=== PATIENT | male | born 1980 ===

== ENCOUNTER 2016-05-09 14:00 | Emergency (ER) | payer OTHER ==
[2016-05-09 14:05] VITALS: BMI 40.2
[2016-05-09] MEDS ORDERED: Sodium Chloride 0.9% 1,000 ML IV ONE (14:12)
[2016-05-09 14:16] VITALS: TEMP 97.9
[2016-05-09] MEDS ORDERED: Sodium Chloride 0.9% 1,000 ML ONE (14:27)
[2016-05-09 14:36] LABS: BASO % 0.4 % (0.0-2.0); EOS # 0.6 K/uL (0.0-0.7); EOS % 7.9 % (0.0-4.0); HEMATOCRIT 42.5 % (35.0-51.0); LYMPH % 27.3 % (20.0-40.0); MEAN CELL VOLUME 79.1 fL (80.0-94.0); MEAN CORPUSCULAR HEMOGLOBIN 25.9 pg (27.0-31.0); MEAN CORPUSCULAR HGB CONC 32.7 g/dL (33.0-37.0); MEAN PLATELET VOLUME 8.8 fL (7.2-11.7); MONO # 0.6 K/uL (0.0-0.8); NRBC % 0.1 % (0.0-2.0); RED CELL DISTRIBUTION WIDTH 13.2 % (11.5-14.5); WHITE BLOOD COUNT 7.4 K/uL (4.8-10.8)
[2016-05-09 14:40] LABS: CHLORIDE 97 mmol/L (98-107)
[2016-05-09 14:41] LABS: POTASSIUM 3.7 mmol/L (3.6-5.2); SODIUM 138 mmol/L (132-148)
[2016-05-09 14:43] LABS: GFR AFRICAN-AMERICAN > 60
[2016-05-09 14:44] LABS: ALB/GLOB RATIO 1.4 (1.0-2.1); ALKALINE PHOSPHATASE 70 U/L (38-126); ALT/SGPT 48 U/L (21-72); AST/SGOT 36 U/L (17-59); BILIRUBIN,TOTAL 0.3 mg/dL (0.2-1.3); BLOOD UREA NITROGEN 14 mg/dL (9-20); CALCIUM 9.4 mg/dl (8.6-10.4); CARBON DIOXIDE 24 mmol/L (22-30); GLUCOSE,RANDOM 137 mg/dL (75-110); TOTAL PROTEIN 7.3 g/dL (6.3-8.3)
--- NOTE | 2016-05-09 15:20 | C.PDOC ---
History Of Present Illness 35 year old male with a history of seizure disorder (since 2013 s/p head trauma) , brought to the ED by EMS s/p two witnessed seizures by his today at home. Patient states all he remembers is taking a shower. He is compliant with Keppra 1000mg BID, however he did not take it this morning. He has no physical complaints at this time. Neurologist: Dr. Caballero Time Seen by Provider: 05/09/16 14:04 Chief Complaint (Nursing): Seizure History Per: Patient History/Exam Limitations: no limitations Recent Seizure Activity Began: Just Before Arrival Number Of Seizures: Multiple Past Medical History Reviewed: Historical Data, Nursing Documentation, Vital Signs Vital Signs: Last Vital Signs Temp 97.9 F 05/09/16 14:05 Pulse 70 05/09/16 16:35 Resp 18 05/09/16 16:35 BP 115/54 L 05/09/16 16:35 Pulse Ox 98 05/09/16 16:40 - Medical History PMH: Back Problems, CVA, Diabetes, HTN, Hypercholesterolemia, Seizures (takes keppra) Surgical History: Appendectomy, Cholecystectomy - [facility] Procedures OTH NONOPER CARD AND VASC MEASURE (06/23/14) Family History: States: No Known Family Hx - Social History Hx Tobacco Use: Yes Hx Alcohol Use: No Hx Substance Use: No - Immunization History Hx Tetanus Toxoid Vaccination: No Hx Influenza Vaccination: No Hx Pneumococcal Vaccination: No Review Of Systems Except As Marked, All Systems Reviewed And Found Negative. Cardiovascular: Negative for: Chest Pain Respiratory: Negative for: Cough, Shortness of Breath Gastrointestinal: Negative for: Nausea, Vomiting, Abdominal Pain, Diarrhea Neurological: Positive for: Seizures Physical Exam - Physical Exam Appears: Well, Non-toxic, No Acute Distress Skin: Normal Color, Warm, Dry Head: Atraumatic, Normacephalic Eye(s): bilateral: Normal Inspection, PERRL, EOMI Oral Mucosa: Moist Tongue: Normal Appearing, No Bite, No Laceration Neck: Supple Cardiovascular: Rhythm Regular Respiratory: Normal Breath Sounds, No Accessory Muscle Use, No Rales, No Rhonchi , No Wheezing Extremity: Normal ROM Neurological/Psych: Oriented x3, Normal Speech, Normal Cognition, Normal Cranial Nerves, No Cerebellar Signs, Normal Motor, Normal Sensation ED Course And Treatment - Laboratory Results Result Diagrams: 05/09/16 14:24 05/09/16 14:24 ECG: Interpreted By Me, Viewed By Me (NSR 66bpm, normal axis, no acute ST/T wave changes) ECG Rhythm: Sinus Rhythm ECG Interpretation: Normal Rate From EC O2 Sat by Pulse Oximetry: 98 (Room air) Pulse Ox Interpretation: Normal Progress Note: Blood work, EKG ordered and reviewed. Patient given PO Keprra and IV NS bolus. Reevaluation Time: 16:40 Reassessment Condition: Improved (Patient reassessed, is resting comfortably, no repeat seizures in ED. Patient instructed to take his medications daily, and to follow up with neurologist Dr. Caballero within 1 week. He underdstands he should return to ED if symptoms worsen.) Disposition Counseled Patient/Family Regarding: Studies Performed, Diagnosis, Need For Followup - Disposition Referrals: Sav Caballero MD [Staff Provider] - Jerome Persaud MD, PhD [Staff Provider] - Disposition: HOME/ ROUTINE Disposition Time: 16:40 Condition: STABLE Additional Instructions: FOLLOW UP WITH YOUR DOCTOR IN TOMORROW, AND WITH NEUROLOGY WITHIN 1 WEEK TAKE YOUR KEPPRA TWICE DAILY RETURN TO ER IF SYMPTOMS WORSEN/RETURN Instructions: Recurrent Seizures in Adults (ED) Print Language: MONTENEGRIN - Clinical Impression Clinical Impression: Seizure, Seizure disorder - Scribe Statement The provider has reviewed the documentation as recorded by the Scribe Monica Guerrero. Provider Attestation: All medical record entries made by the Scribe were at my direction and personally dictated by me. I have reviewed the chart and agree that the record accurately reflects my personal performance of the history, physical exam, medical decision making, and the department course for this patient. I have also personally directed, reviewed, and agree with the discharge instructions and disposition.
[2016-05-09 16:40] VITALS: O2SAT 98
[2016-05-09 16:48] VITALS: BP 115/54; PULSE 70; RESP 18
--- NOTE | 2016-05-10 21:30 | CARD ---
APPROVED REPORT EKG Measurement Heart [id number] <Conclusion> Normal sinus rhythm Normal ECG
== END 2016-05-09 16:51 | disposition home or self-care (01) ==
LOC: C.ER 14:00
DX: G40.909 Epilepsy, unspecified, not intractable, without status epilepticus (principal)
CPT/HCPCS: 80053; 80299; 82550; 82948; 85025; 93005; 96360; 99285; J7040

== ENCOUNTER 2016-05-20 06:24 | Emergency (ER) | payer OTHER ==
[2016-05-20 06:24] VITALS: BMI 40.2
[2016-05-20 06:41] VITALS: BP 140/77; PULSE 97; RESP 16; TEMP 98.2; O2SAT 99
--- NOTE | 2016-05-20 07:32 | C.PDOC ---
History Of Present Illness Patient is a 35 y/o male that presents to the ED for evaluation of dizziness described as head spinning for the last 2 days. Pt states his symptoms are associated with intermittent nausea, and worse with head movement. Pt notes having similar symptoms in the past, but states his symptoms are worse this time. Pt also notes mild back pain s/p fall injury, and reports taking Vicodin. Otherwise, denies any recent head injury, vomiting, vision change, extremity weakness/numbness or any other associated symptoms at this time. Time Seen by Provider: 05/20/16 07:07 Chief Complaint (Nursing): Dizziness/Lightheaded History Per: Patient History/Exam Limitations: no limitations Onset/Duration Of Symptoms: Days (2) Current Symptoms Are (Timing): Still Present Activity At Onset Of Symptoms: Change In Head Position Possible Causative Factor(s): Vertigo Fall Associated With With Symptoms: No Recent travel outside of the [place]: No Additional History Per: Patient - Symptoms Of CVA Recent Head Trauma: No Past Medical History Reviewed: Historical Data, Nursing Documentation, Vital Signs Vital Signs: Last Vital Signs Temp 98.2 F 05/20/16 06:35 Pulse 97 H 05/20/16 06:35 Resp 16 05/20/16 06:35 BP 140/77 05/20/16 06:35 Pulse Ox 99 05/20/16 07:44 - Medical History PMH: Back Problems, CVA, Diabetes, HTN, Hypercholesterolemia, Seizures (takes keppra) Denies: Chronic Kidney Disease Surgical History: Appendectomy, Cholecystectomy - [facility] Procedures OTH NONOPER CARD AND VASC MEASURE (06/23/14) Family History: States: Unknown Family Hx - Social History Hx Tobacco Use: Yes Hx Alcohol Use: No Hx Substance Use: No - Immunization History Hx Tetanus Toxoid Vaccination: No Hx Influenza Vaccination: No Hx Pneumococcal Vaccination: No Review Of Systems Except As Marked, All Systems Reviewed And Found Negative. Constitutional: Negative for: Fever, Chills Gastrointestinal: Positive for: Nausea. Negative for: Vomiting, Abdominal Pain Musculoskeletal: Positive for: Back Pain. Negative for: Neck Pain Neurological: Positive for: Dizziness. Negative for: Weakness, Numbness Physical Exam - Physical Exam Additional Physical Exam Comments: Constitutional: No acute distress. Head: Normocephalic. Atraumatic. Eyes: PERRL. No nystagmus. ENT: Moist mucous membranes. Neck: Supple. Cardiovascular: Regular rate. Radial pulse 2+ bilaterally. Chest: No tenderness. Respiratory: Clear to auscultation bilaterally. GI: Soft. Nontender. Nondistended. Back: No CVA tenderness. No midline tenderness. Musculoskeletal: No tenderness or swelling of extremities. Skin: No rash. Neurologic: Alert, no focal deficit. Oriented x 3. Cranial nerves II-XII intact. Normal finger to nose. Normal sensation. Motor 5/5 x 4. Steady gait. ED Course And Treatment O2 Sat by Pulse Oximetry: 99 Medical Decision Making Medical Decision Making: Progress note: Patient was treated with Meclizine in the ED. On reassessment, patient is resting comfortably and states the vertigo is much better, with no acute distress. Pt denies any neurologic complaints at this time. Pt is ambulating well, and states he will follow up with his doctor. Disposition - Disposition Referrals: Jerome Persaud MD, PhD [Staff Provider] - Disposition: HOME/ ROUTINE Disposition Time: 08:44 Condition: STABLE Prescriptions: Meclizine [Antivert] 25 mg PO TID PRN #20 tab PRN Reason: Dizziness Instructions: Benign Paroxysmal Positional Vertigo (ED) Forms: Work Excuse - Clinical Impression Clinical Impression: Vertigo - Scribe Statement The provider has reviewed the documentation as recorded by the Christy Reinoso Provider Attestation: All medical record entries made by the Deonibdaysi were at my direction and personally dictated by me. I have reviewed the chart and agree that the record accurately reflects my personal performance of the history, physical exam, medical decision making, and the department course for this patient. I have also personally directed, reviewed, and agree with the discharge instructions and disposition.
== END 2016-05-20 08:51 | disposition home or self-care (01) ==
LOC: C.ER 06:24
DX: R42 Dizziness and giddiness (principal)

== ENCOUNTER 2016-06-27 23:53 | Emergency (ER) | payer OTHER ==
[2016-06-27 23:53] VITALS: BMI 40.2
[2016-06-28 00:42] VITALS: BP 131/67; PULSE 80; RESP 20; TEMP 98; O2SAT 98
[2016-06-28] MEDS ORDERED: Naproxen 550 mg Tab PO ONE (01:01)
--- NOTE | 2016-06-29 02:42 | C.PDOC ---
History Of Present Illness Patient is a 36 y/o male that presents to the ER for evaluation of back pain that developed yesterday. Pt describes the pain as stiffness. Pt notes having similar symptoms in the past s/p injury at work few months ago. Pt had MRI done at that time, and states was diagnosed with thoracic and lumbar "bruising". Pt notes starting physical therapy 3 days ago, and went back to work yesterday for light duty work. Pt states he was at work for 4 hours yesterday, when the pain started. Denies taking any pain medications at home. Otherwise, denies any trauma, injury, change in sensation, extremity weakness/numbness, incontinence, or any other associated symptoms at this time. Time Seen by Provider: 06/28/16 00:27 Chief Complaint (Nursing): Back Pain History Per: Patient History/Exam Limitations: no limitations Onset/Duration Of Symptoms: Days (yesterday) Associated Symptoms: denies: Incontinence, New Weakness, New Numbness Past Medical History Vital Signs: Last Vital Signs Temp 98 F 06/28/16 00:41 Pulse 80 06/28/16 00:41 Resp 20 06/28/16 00:41 BP 131/67 06/28/16 00:41 Pulse Ox 98 06/28/16 00:41 - Medical History PMH: Back Problems, CVA, Diabetes, HTN, Hypercholesterolemia, Seizures (takes keppra) Denies: Chronic Kidney Disease Surgical History: Appendectomy, Cholecystectomy - [facility] Procedures OTH NONOPER CARD AND VASC MEASURE (06/23/14) Family History: States: Unknown Family Hx - Social History Hx Tobacco Use: Yes Hx Alcohol Use: No Hx Substance Use: No - Immunization History Hx Tetanus Toxoid Vaccination: No Hx Influenza Vaccination: No Hx Pneumococcal Vaccination: No Review Of Systems Except As Marked, All Systems Reviewed And Found Negative. Musculoskeletal: Positive for: Back Pain Physical Exam - Physical Exam Appears: Well, Non-toxic, No Acute Distress Skin: Normal Color, Warm, Dry Head: Atraumatic, Normacephalic Eye(s): bilateral: Normal Inspection, EOMI Nose: Normal Neck: Normal, Normal ROM, No Step Off Deformity, Supple Chest: Symmetrical Cardiovascular: Rhythm Regular Respiratory: Normal Breath Sounds Gastrointestinal/Abdominal: Normal Exam, Soft, No Tenderness, Other (obese) Back: No CVA Tenderness, No Vertebral Tenderness, Paraspinal Tenderness ((+) Left sided lower paralumbar tenderness) Extremity: Normal ROM Neurological/Psych: Oriented x3, Normal Speech, Normal Motor (5/5 strength), Normal Sensation ((-) saddle anesthsia) Gait: Steady ED Course And Treatment O2 Sat by Pulse Oximetry: 98 Progress Note: Pt offered XR, refused. Flexeril and naproxen ordered. On reassessment, patient resting comfortably, no longer having back pain, no fever , no bony tenderness, no numbness, no weakness, no abdominal pain. Patient is ambulatory in the emergency department with no discomfort. Patient was instructed to follow up with physician/clinic in 1-2 days for further evaluation or return to ED if symptoms persist or worsen. pot notes he will f/u with his doctor tomorrow. Disposition - Disposition Disposition: HOME/ ROUTINE Disposition Time: 02:47 Condition: STABLE - Clinical Impression Clinical Impression: Low back pain
== END 2016-06-28 00:41 | disposition home or self-care (01) ==
LOC: C.ER 23:53
DX: M54.5 Low back pain (principal)

== ENCOUNTER 2016-07-05 18:05 | Emergency (ER) | payer OTHER ==
[2016-07-05 18:06] VITALS: BMI 40.2
[2016-07-05 18:20] VITALS: TEMP 97.9; O2SAT 97
--- NOTE | 2016-07-05 19:08 | C.PDOC ---
History Of Present Illness 36 y/o male with hx of a slip and fall at work in March, had mri done at end of May showing "lumbar and thoracic bruising'. Pt started physicial therapy last week. pt returned to work after injury on June 26, seen in [facility] on June 27 for back pain and was prescribed flexeril and naproxen, however pt has not yet filled either prescription. addendum- unclear if pat was given rx last visit, will give today. pt sts he returned to work on 07/02 and has not been able to do his job properly (is on light duty) over the last few days because of pain. today. 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 pt is not taking anything at all for pain. pt also c/o dizziness and nausea when pain is bad, c/o occasional tingling in left leg. pt denies any saddle anesthesia, bladder or bowel dysfunction or lower ext weakness. no fever or chills. Time Seen by Provider: 07/05/16 18:31 Chief Complaint (Nursing): Back Pain History Per: Patient History/Exam Limitations: no limitations Onset/Duration Of Symptoms: Days Quality Of Discomfort: Unable To Describe Associated Symptoms: denies: Incontinence, New Weakness, New Numbness Exacerbating Factor(s): Movement Recent travel outside of the [place]: No Past Medical History Reviewed: Historical Data, Nursing Documentation, Vital Signs Vital Signs: Last Vital Signs Temp 97.9 F 07/05/16 18:17 Pulse 78 07/05/16 20:25 Resp 17 07/05/16 20:25 BP 129/79 07/05/16 20:25 Pulse Ox 97 07/06/16 19:53 - Medical History PMH: Back Problems, CVA, Diabetes, HTN, Hypercholesterolemia, Seizures (takes keppra) Denies: Chronic Kidney Disease Surgical History: Appendectomy, Cholecystectomy - [facility] Procedures OTH NONOPER CARD AND VASC MEASURE (06/23/14) Family History: States: Unknown Family Hx - Social History Hx Tobacco Use: Yes Hx Alcohol Use: No Hx Substance Use: No - Immunization History Hx Tetanus Toxoid Vaccination: No Hx Influenza Vaccination: No Hx Pneumococcal Vaccination: No Review Of Systems Constitutional: Negative for: Fever, Chills Cardiovascular: Negative for: Chest Pain, Palpitations Respiratory: Negative for: Cough, Shortness of Breath Gastrointestinal: Negative for: Vomiting, Abdominal Pain Skin: Negative for: Rash Neurological: Positive for: Dizziness (unable to describe exactly what this means. ). Negative for: Weakness, Numbness Physical Exam - Physical Exam Appears: Non-toxic, No Acute Distress Skin: Normal Color, Warm, Dry Head: Atraumatic, Normacephalic Neck: Normal ROM, No Midline Cervical Tenderness Chest: Symmetrical, No Tenderness Cardiovascular: Rhythm Regular, No Murmur Respiratory: Normal Breath Sounds, No Accessory Muscle Use, No Rales, No Rhonchi , No Stridor, No Wheezing Gastrointestinal/Abdominal: Soft, No Tenderness Back: Normal Inspection, No CVA Tenderness, No Vertebral Tenderness, Paraspinal Tenderness (bilateral lumbar area) Extremity: Normal ROM, No Pedal Edema, No Calf Tenderness Neurological/Psych: Oriented x3, Normal Speech, Normal Cognition, Normal Motor, Normal Sensation Gait: Steady ED Course And Treatment O2 Sat by Pulse Oximetry: 97 Medical Decision Making Medical Decision Making: pt ambulates with no difficulty, will d/c home with flexeril and naproxen, and recommend that pt f/u with physician and continues physical therapy. . Disposition Counseled Patient/Family Regarding: Diagnosis, Need For Followup, Rx Given - Disposition Referrals: [facility] [Outside] [facility] [Outside] Disposition: HOME/ ROUTINE Disposition Time: 20:18 Condition: GOOD Additional Instructions: AvoiD heavy lifting. No operating machinery or driving when taking muscle relaxant. FOllow up in Medical clinic or with your workers compensation doctor as soon as possible. Prescriptions: Cyclobenzaprine [Cyclobenzaprine HCl] 10 mg PO Q8 #9 tab Ibuprofen [Motrin] 600 mg PO TID #30 tab Instructions: Chronic Back Pain (ED) Forms: Work Excuse, General Discharge Instructions - Clinical Impression Clinical Impression: Chronic back pain
[2016-07-05 20:26] VITALS: BP 129/79; PULSE 78; RESP 17
== END 2016-07-05 20:26 | disposition home or self-care (01) ==
LOC: C.ER 18:05
DX: G89.29 Other chronic pain (principal); M54.9 Dorsalgia, unspecified
CPT/HCPCS: 82948; 96372; 99284; J1885

== ENCOUNTER 2016-07-19 19:36 | Emergency (ER) | payer OTHER ==
[2016-07-19 19:36] VITALS: BMI 40.2
--- NOTE | 2016-07-19 21:14 | C.PDOC ---
History Of Present Illness 36 yo male w/PMHx of chronic lower back pain, NIDDM, sz ds, come in for evaluation of Right sided lower back pain exacerbation developed few hours [employer] ' after was trying to tight my shoes as was recommend by physical therapy". Pt sts, "have heard some crack sound in my back". Pt admits, under PT now for chronic lower back pain. Pt sts, had similar sx in past. Pt sts, "has multiple pain medication at home, not taking it". Pt sts, had mutiple imaging of his L- spine with MRI that confirmed L-spine hernitaed disc. Otherwise, pt denies fever , chills, headache, dizziness, abd. pain, N/V, UTI sx, saddle anesthesia, incontinence, denies new weakness, sensory or vascular deficits to B/L LEs. Ambulate to Ed for evaluation, not in any apparent distress. Time Seen by Provider: 07/19/16 20:29 Chief Complaint (Nursing): Back Pain History Per: Patient Onset/Duration Of Symptoms: Gradual Past Medical History Reviewed: Historical Data, Nursing Documentation, Vital Signs - Medical History PMH: Back Problems, CVA, Diabetes, HTN, Hypercholesterolemia, Seizures (takes keppra) Denies: Chronic Kidney Disease Other PMH: Obesity Surgical History: Appendectomy, Cholecystectomy - [facility] Procedures OTH NONOPER CARD AND VASC MEASURE (06/23/14) Family History: States: No Known Family Hx - Social History Hx Tobacco Use: Yes Hx Alcohol Use: No Hx Substance Use: No - Immunization History Hx Tetanus Toxoid Vaccination: No Hx Influenza Vaccination: No Hx Pneumococcal Vaccination: No Review Of Systems Except As Marked, All Systems Reviewed And Found Negative. Constitutional: Negative for: Fever, Chills ENT: Negative for: Throat Pain Gastrointestinal: Negative for: Nausea, Vomiting, Abdominal Pain, Diarrhea Genitourinary: Negative for: Dysuria, Frequency, Incontinence Musculoskeletal: Positive for: Back Pain. Negative for: Neck Pain Skin: Negative for: Rash, Bruising Neurological: Negative for: Weakness, Numbness, Altered Mental Status, Headache , Dizziness Physical Exam - Physical Exam Appears: Well, Non-toxic, No Acute Distress Skin: Normal Color, Warm, Dry Eye(s): bilateral: PERRL Throat: Normal, No Erythema, No Exudate, No Drooling Neck: Supple Gastrointestinal/Abdominal: Soft, No Distention, No Guarding Back: No CVA Tenderness, Paraspinal Tenderness (diffuse lumbar paraspinal tenderness, no midline tenderness.) Extremity: No Pedal Edema, No Calf Tenderness, No Deformity Neurological/Psych: Oriented x3, Normal Speech, Normal Motor, Normal Sensation, Normal Reflexes ED Course And Treatment Progress Note: On re-eavluation, pt is afebrile, hemodynamicaly stable. Non- toxic. Ambulatory in Ed with stable gait. Abd: benign. Back: (-) CVA tenderness. Neurologicaly intact. Pt has clinical findings c/w lower back pain with acute exacerbation. Pt advised and ref. to F/u with PMD and PM in 2- 3 days for re-eavl. reurn to ED if any worsening or new changes. Disposition Counseled Patient/Family Regarding: Diagnosis, Need For Followup, Rx Given - Disposition Referrals: [facility] at [facility] [Outside] Disposition: HOME/ ROUTINE Disposition Time: 21:11 Condition: STABLE Additional Instructions: Light duty to lower back, avoid bending forward, lifting heavy, etc Take medication as prescribed Follow up with PMD and Pain Management in 2-3 days for re-evaluation. Return to Ed if any worsening or new changes. Prescriptions: Ibuprofen [Motrin Tab] 600 mg PO Q6 #30 tab Methocarbamol [Robaxin] 500 mg PO TID #20 tab Instructions: Back Pain (ED) - Clinical Impression Clinical Impression: Back pain
[2016-07-19 21:34] VITALS: BP 132/70; PULSE 72; RESP 20; TEMP 97.4; O2SAT 98
== END 2016-07-19 21:50 | disposition home or self-care (01) ==
LOC: C.ER 19:36
DX: M54.5 Low back pain (principal)

== ENCOUNTER 2016-09-03 22:52 | Emergency (ER) | payer OTHER ==
[2016-09-03 22:52] VITALS: BMI 40.2
--- NOTE | 2016-09-04 01:07 | C.PDOC ---
History Of Present Illness Patient presents to the ER with a complaint of feeling slightly dizzy; he states he has a Hx of similar episodes and vertigo. Patient feels better now than at work; however, does not know what his currently sugar level is. Denies fever, chills, nausea, vomiting, weakness, or vision changes. Time Seen by Provider: 09/04/16 01:07 Chief Complaint (Nursing): Dizziness/Lightheaded History Per: Patient History/Exam Limitations: no limitations Onset/Duration Of Symptoms: Hrs Current Symptoms Are (Timing): Still Present Seizure Or Post-ictal Symptoms: None Possible Causative Factor(s): Other (Not known) Fall Associated With With Symptoms: No Severity: None Pain Scale Rating Of: 0 Recent travel outside of the [place]: No - Symptoms Of CVA Associated Symptoms: denies: Impaired Speech, Seizure Activity, New Vision Deficit(Left), New Vision Deficit(Right), Decreased Ability To Walk, New Confusion Past Medical History Reviewed: Historical Data, Nursing Documentation, Vital Signs Vital Signs: Last Vital Signs Temp 98.5 F 09/03/16 23:09 Pulse 87 09/03/16 23:09 Resp 17 09/03/16 23:09 BP 130/80 09/03/16 23:09 Pulse Ox 95 09/04/16 01:27 - Medical History PMH: Back Problems, CVA, Diabetes, HTN, Hypercholesterolemia, Seizures (takes keppra) Surgical History: Appendectomy, Cholecystectomy - [facility] Procedures OTH NONOPER CARD AND VASC MEASURE (06/23/14) Family History: States: No Known Family Hx - Social History Hx Tobacco Use: Yes Hx Alcohol Use: Yes Hx Substance Use: No - Immunization History Hx Tetanus Toxoid Vaccination: No Hx Influenza Vaccination: No Hx Pneumococcal Vaccination: No Review Of Systems Constitutional: Negative for: Fever, Chills Eyes: Negative for: Vision Change Gastrointestinal: Negative for: Nausea, Vomiting Neurological: Positive for: Dizziness. Negative for: Weakness Physical Exam - Physical Exam Appears: Non-toxic, No Acute Distress Skin: Warm, Dry Eye(s): bilateral: Normal Inspection, PERRL, EOMI, Other (No Nystagmus) Oral Mucosa: Moist Neck: Trachea Midline, Supple Chest: Symmetrical, No Tenderness Cardiovascular: Rhythm Regular, No Murmur Respiratory: No Rales, No Rhonchi, No Wheezing Gastrointestinal/Abdominal: Soft, No Tenderness Back: No CVA Tenderness Extremity: Normal ROM Extremity: Bilateral: Atraumatic Neurological/Psych: Oriented x3, Normal Speech, Normal Cognition, No Romberg Gait: Steady ED Course And Treatment O2 Sat by Pulse Oximetry: 95 Pulse Ox Interpretation: Normal Progress Note: Blood work and urinalysis ordered. Antivert and IV fluids ordered. pt refuses blood work. states he feels fine and wants to go home. is aware of all th erisks I have explained at length, including permanent disability and , but pt still wants to go. Will return if symptoms recur Disposition Counseled Patient/Family Regarding: Studies Performed, Diagnosis, Need For Followup, Rx Given - Disposition Disposition: HOME/ ROUTINE Disposition Time: 01:07 Condition: FAIR Instructions: Vertigo (ED), Diabetic Hyperglycemia (ED) Forms: Work Excuse - Clinical Impression Clinical Impression: Dizziness, Hyperglycemia - Scribe Statement The provider has reviewed the documentation as recorded by the Scribe Phillip Moy All medical record entries made by the Scribe were at my direction and personally dictated by me. I have reviewed the chart and agree that the record accurately reflects my personal performance of the history, physical exam, medical decision making, and the department course for this patient. I have also personally directed, reviewed, and agree with the discharge instructions and disposition.
[2016-09-04] MEDS ORDERED: Sodium Chloride 0.9% 1,000 ML IV ONE (01:11)
[2016-09-04] MEDS ORDERED: Sodium Chloride 0.9% 1,000 ML ONE (01:23)
[2016-09-04 01:47] VITALS: BP 121/79; PULSE 74; RESP 20; TEMP 98.1; O2SAT 97
== END 2016-09-04 01:47 | disposition home or self-care (01) ==
LOC: SUPCPDRO 22:52 → C.ER 22:52
DX: E11.65 Type 2 diabetes mellitus with hyperglycemia (principal); R42 Dizziness and giddiness; I10 Essential (primary) hypertension; F17.210 Nicotine dependence, cigarettes, uncomplicated

== ENCOUNTER 2016-09-09 22:21 | Emergency (ER) | payer OTHER ==
[2016-09-09 22:21] VITALS: BMI 40.2
[2016-09-09] MEDS ORDERED: Naproxen 550 mg Tab PO STA (22:53)
[2016-09-09] MEDS ORDERED: Naproxen 550 mg Tab PO ONE (22:58)
--- NOTE | 2016-09-09 23:17 | C.PDOC ---
History Of Present Illness 36 year old male who presents to the ER with a complaint of right lower back pain after moving heavy furniture earlier today. Patient states the pain worsens with movement or bending; denies recent trauma, weakness, numbness, dysuria, hematuria, or incontinence. Time Seen by Provider: 09/09/16 22:35 Chief Complaint (Nursing): Back Pain History Per: Patient History/Exam Limitations: no limitations Onset/Duration Of Symptoms: Hrs Current Symptoms Are (Timing): Still Present Quality Of Discomfort: Unable To Describe Previous Symptoms: None Associated Symptoms: None Exacerbating Factor(s): Movement, Other (Bending) Recent travel outside of the [place]: No Past Medical History Reviewed: Historical Data, Nursing Documentation, Vital Signs Vital Signs: Last Vital Signs Temp 98 F 09/09/16 23:20 Pulse 90 09/09/16 23:20 Resp 20 09/09/16 23:20 BP 118/70 09/09/16 23:20 Pulse Ox 97 09/09/16 23:39 - Medical History PMH: Back Problems, CVA, Diabetes, HTN, Hypercholesterolemia, Seizures (takes keppra) Surgical History: Appendectomy, Cholecystectomy - [facility] Procedures OTH NONOPER CARD AND VASC MEASURE (06/23/14) Family History: States: Unknown Family Hx - Social History Hx Tobacco Use: Yes Hx Alcohol Use: Yes Hx Substance Use: No - Immunization History Hx Tetanus Toxoid Vaccination: No Hx Influenza Vaccination: No Hx Pneumococcal Vaccination: No Review Of Systems Genitourinary: Negative for: Dysuria, Incontinence, Hematuria Musculoskeletal: Positive for: Back Pain Neurological: Negative for: Weakness, Numbness Physical Exam - Physical Exam Appears: Non-toxic Skin: Normal Color, Warm, Dry Head: Atraumatic, Normacephalic Oral Mucosa: Moist Chest: Symmetrical, No Tenderness Cardiovascular: Rhythm Regular, No Murmur Respiratory: Normal Breath Sounds, No Rales, No Rhonchi, No Wheezing Gastrointestinal/Abdominal: Soft, No Tenderness Back: No Vertebral Tenderness, Paraspinal Tenderness (Right lumbar) Neurological/Psych: Oriented x3, Normal Speech, Normal Cognition ED Course And Treatment O2 Sat by Pulse Oximetry: 97 (Room air) Pulse Ox Interpretation: Normal Medical Decision Making Medical Decision Making: Plan: * Flexeril * Anaprox On reevaluation, patient's pain has improved, he is able to ambulate in the ER with no difficulty. Will discharge home with instructions to follow up with PMD. Disposition - Disposition Referrals: [facility] at [facility] [Outside] Disposition: HOME/ ROUTINE Disposition Time: 23:14 Condition: GOOD Additional Instructions: Follow up with your medical doctor within 1-2 days . Return if worsened. Prescriptions: Acetaminophen [Tylenol] 325 mg PO Q6 PRN #30 tab PRN Reason: Pain, Mild (1-3) Cyclobenzaprine [Flexeril] 5 mg PO TID #21 tab Naproxen [Naprosyn] 500 mg PO BID #20 tab Instructions: Acute Low Back Pain (ED) Forms: [facility] (Armenian), Work Excuse - Clinical Impression Clinical Impression: Lumbar sprain - Scribe Statement The provider has reviewed the documentation as recorded by the Scribdaysi Moy All medical record entries made by the Deonibdaysi were at my direction and personally dictated by me. I have reviewed the chart and agree that the record accurately reflects my personal performance of the history, physical exam, medical decision making, and the department course for this patient. I have also personally directed, reviewed, and agree with the discharge instructions and disposition.
[2016-09-09 23:21] VITALS: BP 118/70; PULSE 90; RESP 20; TEMP 98
[2016-09-09 23:36] VITALS: O2SAT 97
== END 2016-09-09 23:21 | disposition home or self-care (01) ==
LOC: C.ER 22:21
DX: S33.5XXA Sprain of ligaments of lumbar spine, initial encounter (principal); X50.0XXA Overexertion from strenuous movement or load, initial encounter

== ENCOUNTER 2017-04-27 19:25 | Emergency (ER) | payer SELFPAY ==
[2017-04-27 19:26] VITALS: BMI 40.2
[2017-04-27 19:40] VITALS: BP 118/77; PULSE 79; RESP 18; TEMP 98; O2SAT 97
--- NOTE | 2017-04-27 19:52 | C.PDOC ---
History Of Present Illness 36 y/o male, whose PMH includes CVA and HTN, who presents to the ED complaining of dizziness and lightheadedness since one day ago. Patient reports he was unloading a truck when his symptoms began and thought his blood pressure was high today. Patient denies any other complaints and does not want any other work -up done. Time Seen by Provider: 04/27/17 19:44 Chief Complaint (Nursing): Headache History Per: Patient History/Exam Limitations: no limitations Onset/Duration Of Symptoms: Days Current Symptoms Are (Timing): Better Severity: None Recent travel outside of the [place]: No Past Medical History Reviewed: Historical Data, Nursing Documentation, Vital Signs Vital Signs: Last Vital Signs Temp 98.0 F 04/27/17 19:33 Pulse 79 04/27/17 19:33 Resp 18 04/27/17 19:33 BP 118/77 04/27/17 19:33 Pulse Ox 97 04/27/17 19:53 - Medical History PMH: Back Problems, CVA, Diabetes, HTN, Hypercholesterolemia, Seizures (takes keppra) Denies: Chronic Kidney Disease Surgical History: Appendectomy, Cholecystectomy - [facility] Procedures OTH NONOPER CARD AND VASC MEASURE (06/23/14) Family History: States: Unknown Family Hx - Social History Hx Tobacco Use: Yes Hx Alcohol Use: No Hx Substance Use: No - Immunization History Hx Tetanus Toxoid Vaccination: No Hx Influenza Vaccination: Yes Hx Pneumococcal Vaccination: No Review Of Systems Except As Marked, All Systems Reviewed And Found Negative. Cardiovascular: Negative for: Chest Pain Respiratory: Negative for: Shortness of Breath Neurological: Positive for: Dizziness Physical Exam - Physical Exam Appears: Well, Non-toxic, No Acute Distress Skin: Normal Color, Warm, Dry Head: Atraumatic, Normacephalic Eye(s): bilateral: Normal Inspection, PERRL, EOMI Cardiovascular: Rhythm Regular Respiratory: Normal Breath Sounds, No Rales, No Rhonchi, No Wheezing Gastrointestinal/Abdominal: Normal Exam, Bowel Sounds (active), Soft, No Tenderness, No Distention, No Guarding, No Rebound Neurological/Psych: Oriented x3, Normal Speech, Normal Motor ED Course And Treatment O2 Sat by Pulse Oximetry: 97 (room air) Pulse Ox Interpretation: Normal Medical Decision Making Medical Decision Making: pt states "felt b/p was high".although on arrival it is wnl. refuses lab work. states will return w/ worsening. Plans: -- Disposition Disposition - Disposition Referrals: [facility] [Outside] [facility] at [facility] [Outside] Disposition: HOME/ ROUTINE Disposition Time: 08:45 Condition: STABLE Additional Instructions: you are declining further eval in er. return to er with worsening symptoms or concerns. Instructions: Dizziness, Nonvertigo, (DC) Forms: [employer] (Hungarian), Work Excuse - Clinical Impression Clinical Impression: Dizziness - Scribe Statement The provider has reviewed the documentation as recorded by the Scribe Scribe Attestation: Ann-Marie Enriquez MD Scribe Attestation: All medical record entries made by the Scribe were at my direction and personally dictated by me. I have reviewed the chart and agree that the record accurately reflects my personal performance of the history, physical exam, medical decision making, and the department course for this patient. I have also personally directed, reviewed, and agree with the discharge instructions and disposition.
== END 2017-04-27 20:10 | disposition home or self-care (01) ==
LOC: C.ER 19:25
DX: R42 Dizziness and giddiness (principal)

== ENCOUNTER 2017-07-17 21:54 | Emergency (ER) | payer SELFPAY ==
[2017-07-17 21:54] VITALS: BMI 40.2
[2017-07-17 22:18] VITALS: TEMP 98.2
--- NOTE | 2017-07-17 22:59 | C.PDOC ---
History Of Present Illness 37 year old male with PMHx of HTN and DM presents to the ED c/o left foot pain. Patient states he has not taking his medciations over the past 2 days because he ran out of them. Patient is also c/o pain to the sole of his left foot that hurts when ambulating. Patient denies injury,fall, trauma, weakness, numbness, CP, SOB. Chief Complaint (Nursing): Lower Extremity Problem/Injury History Per: Patient History/Exam Limitations: no limitations Onset/Duration Of Symptoms: Days (2) Current Symptoms Are (Timing): Still Present Recent travel outside of the [place]: No Additional History Per: Patient - Ankle/Foot Description Of Injury: Other Alleviating Factor(s): denies: OTC Pain Medication Past Medical History Reviewed: Historical Data, Nursing Documentation, Vital Signs Vital Signs: Last Vital Signs Temp 98.2 F 07/17/17 22:14 Pulse 79 07/17/17 22:14 Resp 20 07/17/17 22:14 BP 163/78 H 07/17/17 22:14 Pulse Ox 97 07/17/17 23:04 - Medical History PMH: Back Problems, CVA, Diabetes, HTN, Hypercholesterolemia, Seizures (takes keppra) Denies: Chronic Kidney Disease Surgical History: Appendectomy, Cholecystectomy - [facility] Procedures OTH NONOPER CARD AND VASC MEASURE (06/23/14) Family History: States: Unknown Family Hx - Social History Hx Tobacco Use: Yes Hx Alcohol Use: No Hx Substance Use: No - Immunization History Hx Tetanus Toxoid Vaccination: No Hx Influenza Vaccination: Yes Hx Pneumococcal Vaccination: No Review Of Systems Constitutional: Negative for: Fever, Chills Cardiovascular: Negative for: Chest Pain Respiratory: Negative for: Cough, Shortness of Breath Gastrointestinal: Negative for: Nausea, Vomiting Musculoskeletal: Positive for: Foot Pain Skin: Negative for: Rash Neurological: Negative for: Weakness, Numbness Physical Exam - Physical Exam Appears: Non-toxic, No Acute Distress Skin: Normal Color, Warm, Dry Head: Atraumatic, Normacephalic Eye(s): bilateral: Normal Inspection Oral Mucosa: Moist Neck: Normal ROM, Supple Chest: Symmetrical Cardiovascular: Rhythm Regular Respiratory: Normal Breath Sounds, No Rales, No Rhonchi Gastrointestinal/Abdominal: Soft, No Tenderness, No Guarding, No Rebound Back: Normal Inspection Extremity: Normal ROM, Tenderness (left foot sole), Capillary Refill (< 2 seconds), No Swelling, Other (no erythema, warmth left foot.) Extremity: Bilateral: Atraumatic, Normal Color And Temperature Pulses: Left Dorsalis Pedis: Normal, Right Dorsalis Pedis: Normal Neurological/Psych: Oriented x3, Normal Speech, Normal Motor, Normal Sensation Gait: Steady ED Course And Treatment - Laboratory Results Result Diagrams: 07/17/17 23:30 07/17/17 23:30 O2 Sat by Pulse Oximetry: 97 (ON RA) Pulse Ox Interpretation: Normal Medical Decision Making Medical Decision Making: Plan: * Labs * Toradol 60 mg IM Disposition Counseled Patient/Family Regarding: Diagnosis - Disposition Referrals: [facility] at [facility] [Outside] Disposition: HOME/ ROUTINE Disposition Time: 23:57 Condition: STABLE Prescriptions: levETIRAcetam [Keppra] 1,000 mg PO BID #60 tab Losartan [Cozaar] 100 mg PO DAILY #60 tab MetFORMIN [glucoPHAGE] 1,000 mg PO BID #60 tab Naproxen 375 mg PO TIDPC #14 tablet Instructions: Tendonitis, Type 2 Diabetes, High Blood Pressure (DC) Forms: [employer] (Uzbek) - POA Present On Arrival: None - Clinical Impression Clinical Impression: Hypertension, Diabetes mellitus, Tendinitis of ankle or foot - Scribe Statement The provider has reviewed the documentation as recorded by the Scribe Dom Thomas All medical record entries made by the Scribe were at my direction and personally dictated by me. I have reviewed the chart and agree that the record accurately reflects my personal performance of the history, physical exam, medical decision making, and the department course for this patient. I have also personally directed, reviewed, and agree with the discharge instructions and disposition.
[2017-07-17 23:33] LABS: BASO # 0.1 K/uL (0.0-0.2); BASO % 0.6 % (0.0-2.0); EOS # 0.3 K/uL (0.0-0.7); EOS % 3.8 % (0.0-4.0); HEMOGLOBIN 15.5 g/dL (12.0-18.0); LYMPH # 2.8 K/uL (1.0-4.3); LYMPH % 33.4 % (20.0-40.0); MEAN CELL VOLUME 80.5 fL (80.0-94.0); MEAN CORPUSCULAR HEMOGLOBIN 26.6 pg (27.0-31.0); MEAN CORPUSCULAR HGB CONC 33.1 g/dL (33.0-37.0); MEAN PLATELET VOLUME 8.6 fL (7.2-11.7); MONO # 0.7 K/uL (0.0-0.8); MONO % 8.6 % (0.0-10.0); NEUT # 4.5 K/uL (1.8-7.0); NEUT % 53.6 % (50.0-75.0); NRBC % 0.1 % (0.0-2.0); RBC 5.84 Mil/uL (4.40-5.90); RED CELL DISTRIBUTION WIDTH 14.1 % (11.5-14.5); WHITE BLOOD COUNT 8.5 K/uL (4.8-10.8)
[2017-07-17 23:48] LABS: ALB/GLOB RATIO 1.2 (1.0-2.1); ALBUMIN 4.2 g/dL (3.5-5.0); ALT/SGPT 31 U/L (21-72); AST/SGOT 24 U/L (17-59); BLOOD UREA NITROGEN 18 mg/dL (9-20); CALCIUM 9.2 mg/dl (8.6-10.4); GFR AFRICAN-AMERICAN > 60; GFR NON-AFRICAN AMERICAN > 60
[2017-07-18 00:35] VITALS: BP 116/58; PULSE 88; RESP 16; O2SAT 99
== END 2017-07-18 00:30 | disposition home or self-care (01) ==
LOC: C.ER 21:54
DX: E11.9 Type 2 diabetes mellitus without complications (principal); I10 Essential (primary) hypertension; M77.52 Other enthesopathy of left foot and ankle; E78.00 Pure hypercholesterolemia, unspecified; Z86.73 Personal history of transient ischemic attack (TIA), and cerebral infarction without residual deficits; Z72.0 Tobacco use

== ENCOUNTER 2017-08-04 19:30 | Emergency (ER) | payer SELFPAY ==
[2017-08-04 19:30] VITALS: BMI 40.2
[2017-08-04 19:57] VITALS: BP 129/78; PULSE 75; RESP 16; TEMP 98.7; O2SAT 97
--- NOTE | 2017-08-04 20:43 | C.PDOC ---
History Of Present Illness The patient with a PMHx of chronic back pain, comes in today stating he has had left sided lower back pain which radiates to the lower leg. The patient also reports pain to the bottom of the left foot which is worsened when he walks and improved with rest. Denies trauma, numbness, weakness, bowel/bladder incontinence, fever, abdominal pain. Time Seen by Provider: 08/04/17 20:01 Chief Complaint (Nursing): Back Pain Past Medical History Vital Signs: Last Vital Signs Temp 98.7 F 08/04/17 19:53 Pulse 75 08/04/17 19:53 Resp 16 08/04/17 19:53 BP 129/78 08/04/17 19:53 Pulse Ox 97 08/04/17 20:42 - Medical History PMH: Back Problems, CVA, Diabetes, HTN, Hypercholesterolemia, Seizures (takes keppra) Denies: Chronic Kidney Disease Surgical History: Appendectomy, Cholecystectomy - [facility] Procedures OTH NONOPER CARD AND VASC MEASURE (06/23/14) Family History: States: Unknown Family Hx - Social History Hx Tobacco Use: Yes Hx Alcohol Use: No Hx Substance Use: No - Immunization History Hx Tetanus Toxoid Vaccination: No Hx Influenza Vaccination: Yes Hx Pneumococcal Vaccination: No Physical Exam - Physical Exam Appears: Non-toxic, No Acute Distress Skin: Normal Color, Warm, No Rash Head: Atraumatic, Normacephalic Eye(s): bilateral: Normal Inspection, PERRL, EOMI Oral Mucosa: Moist Neck: Normal ROM Chest: Symmetrical, No Tenderness Cardiovascular: Rhythm Regular, No Friction Rub, No Murmur Respiratory: Normal Breath Sounds Gastrointestinal/Abdominal: Soft, No Tenderness Back: Normal Inspection, No CVA Tenderness, No Vertebral Tenderness, Paraspinal Tenderness (paralumbar spine) Extremity: Normal ROM, Capillary Refill (< 2 sec), No Swelling, Other ((+) mild tenderness to the left arch and plantar aspect ) Pulses: Left Dorsalis Pedis: Normal, Right Dorsalis Pedis: Normal Neurological/Psych: Oriented x3, Normal Speech, Normal Motor, Normal Sensation Gait: Steady ED Course And Treatment O2 Sat by Pulse Oximetry: 97 (on RA) Pulse Ox Interpretation: Normal Medical Decision Making Medical Decision Making: On re-exam, the patient reports improvement of symptoms. Lungs are CTA, heart is RRR, abdomen is soft, non-tender. Patient is ambulatory with steady gait Disposition - Disposition [facility]errals[facility]] [facility] [Outside] Disposition: HOME/ ROUTINE Disposition Time: 20:41 Condition: GOOD Additional Instructions: Follow up with the medical doctor within 1-2 days. Return if worsened. Prescriptions: Ibuprofen [Motrin] 600 mg PO TID #21 tab Instructions: Heel Pain (Caused by Plantar Fasciitis) (DC) Forms: [employer] (Arabic) - Clinical Impression Clinical Impression: Plantar fasciitis, Chronic back pain
== END 2017-08-04 21:05 | disposition home or self-care (01) ==
LOC: C.ER 19:30
DX: M54.9 Dorsalgia, unspecified (principal); G89.29 Other chronic pain; M72.2 Plantar fascial fibromatosis
CPT/HCPCS: 96372; 99284; J1885

== ENCOUNTER 2018-03-03 17:59 | Emergency (ER) | payer SELFPAY ==
[2018-03-03 17:59] VITALS: BMI 40.2
[2018-03-03 18:12] VITALS: BP 138/79; PULSE 79; TEMP 98; O2SAT 98
[2018-03-03] MEDS ORDERED: Naproxen 550 mg Tab PO STA (19:03)
[2018-03-03] MEDS ORDERED: Naproxen 550 mg Tab PO ONE (19:09)
--- NOTE | 2018-03-03 19:41 | C.PDOC ---
History Of Present Illness 37-year-old male presents to the ED for evaluation of neck and back pain which began last night. Patient states he was at work and tried lifting a heavy object, when he tripped and fell backwards. Patient landed onto his neck and back and is now complaining of neck pain that is worse with movement. Patient is also complaining of lower abdominal pain, stating he feels a "pull" when trying to lift something. He denies LOC, nausea, vomiting, chest pain, shortness of breath, dysuria, hematuria, extremity numbness/weakness. Time Seen by Provider: 03/03/18 18:25 Chief Complaint (Nursing): Abdominal Pain History Per: Patient History/Exam Limitations: no limitations Onset/Duration Of Symptoms: Hrs Current Symptoms Are (Timing): Still Present Location Of Pain/Discomfort: Other (lower abdomen ) Quality Of Discomfort: "Pain" Associated Symptoms: denies: Nausea, Vomiting, Chest Pain, Urinary Symptoms Additional History Per: Patient Past Medical History Reviewed: Historical Data, Nursing Documentation, Vital Signs Vital Signs: Last Vital Signs Temp 98 F 03/03/18 18:08 Pulse 79 03/03/18 18:08 Resp 16 03/03/18 18:08 BP 138/79 03/03/18 18:08 Pulse Ox 98 03/03/18 18:08 - Medical History PMH: Back Problems, CVA, Diabetes, HTN, Hypercholesterolemia, Seizures (takes keppra) Denies: Chronic Kidney Disease Surgical History: Appendectomy, Cholecystectomy - [facility] Procedures OTH NONOPER CARD AND VASC MEASURE (06/23/14) Family History: States: Unknown Family Hx - Social History Hx Tobacco Use: Yes Hx Alcohol Use: No Hx Substance Use: No - Immunization History Hx Tetanus Toxoid Vaccination: No Hx Influenza Vaccination: Yes Hx Pneumococcal Vaccination: No Review Of Systems Cardiovascular: Negative for: Chest Pain Respiratory: Negative for: Shortness of Breath Gastrointestinal: Positive for: Abdominal Pain (lower abdomen ). Negative for: Nausea, Vomiting Genitourinary: Negative for: Dysuria, Hematuria Musculoskeletal: Positive for: Neck Pain, Back Pain Neurological: Negative for: Other (LOC ) Physical Exam - Physical Exam Appears: Non-toxic, No Acute Distress Skin: Normal Color, Warm, Dry, No Rash Head: Atraumatic, Normacephalic Eye(s): bilateral: Normal Inspection Oral Mucosa: Moist Neck: Normal ROM, No Midline Cervical Tenderness, Paracervical Tenderness (left- sided), Supple Chest: Symmetrical, No Deformity, No Tenderness Cardiovascular: Rhythm Regular, No Friction Rub, No Murmur Respiratory: Normal Breath Sounds, No Rales, No Rhonchi, No Wheezing Gastrointestinal/Abdominal: Soft, No Tenderness, No Guarding, No Rebound, No Hernia (visible ) Male Genital: No Inguinal Tenderness, No Scrotal Swelling Extremity: Normal ROM, No Tenderness, Capillary Refill (less than 2 seconds ), No Swelling Neurological/Psych: Oriented x3, Normal Speech, Normal Cognition, Normal Motor Gait: Steady ED Course And Treatment O2 Sat by Pulse Oximetry: 98 (on RA) Pulse Ox Interpretation: Normal Medical Decision Making Medical Decision Making: Progress: Cervical and LS spine XRs ordered and reviewed. Naproxen PO given for pain. On re-exam, the patient reports improvement of symptoms. Lungs are CTA, heart is RRR, Abdomen is soft, non-tender and tolerating PO well. Ambulatory in the ED w ith steady gait. Follow up with the medical doctor within 1-2 days. Return if worsened. Disposition - Disposition Referrals: [facility] at [facility] [Outside] Disposition: HOME/ ROUTINE Disposition Time: 19:39 Condition: STABLE Additional Instructions: Follow up with the medical doctor within 1-2 days. Return if worsened. Prescriptions: Naproxen [Naprosyn] 500 mg PO BID #20 tab Instructions: Muscle Strain (DC) Forms: Work Excuse - Clinical Impression Clinical Impression: Muscle strain, Back contusion, Cervical strain - PA / SIZER MACHINE / Resident Statement MD/DO has reviewed & agrees with the documentation as recorded. - Scribe Statement The provider has reviewed the documentation as recorded by the Scribe (Jen Reinoso) All medical record entries made by the Scribe were at my direction and personally dictated by me. I have reviewed the chart and agree that the record accurately reflects my personal performance of the history, physical exam, medical decision making, and the department course for this patient. I have also personally directed, reviewed, and agree with the discharge instructions and disposition.
[2018-03-03 19:46] VITALS: RESP 20
--- NOTE | 2018-03-04 08:52 | RAD ---
Date of service: 03/03/2018 PROCEDURE: Cervical Spine Radiographs. HISTORY: Pain. COMPARISON: None available. FINDINGS: BONES: Alignment maintained. No fracture. Dens Intact. 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 DISC SPACES: Normal. SOFT TISSUES: Normal. No prevertebral soft tissue swelling. OTHER FINDINGS: None. IMPRESSION: Normal cervical spine radiographs. Developmental variant incidentally noted.
--- NOTE | 2018-03-04 08:53 | RAD ---
Date of service: 03/03/2018 PROCEDURE: Radiographs of the Lumbar Spine. HISTORY: FALL, BACK PAIN COMPARISON: No prior. FINDINGS: BONES: Normal alignment. No listhesis. No fracture. Posterior inferior endplate spurring L4-L3 and L2 levels most notably. T9-10 and T10-11 anterior mild spondylosis. DISC SPACES: Minimal decreased disc space narrowing posteriorly at all lumbar levels. OTHER FINDINGS: Cholecystectomy clips IMPRESSION: No vertebral body fracture. Mild endplate ridging posteriorly most pronounced at L2, L3 and L4 Other findings as above.
== END 2018-03-03 19:46 | disposition home or self-care (01) ==
LOC: C.ER 17:59
DX: S16.1XXA Strain of muscle, fascia and tendon at neck level, initial encounter (principal); S30.0XXA Contusion of lower back and pelvis, initial encounter; W01.0XXA Fall on same level from slipping, tripping and stumbling without subsequent striking against object, initial encounter; Y92.89 Other specified places as the place of occurrence of the external cause; Y99.0 Civilian activity done for income or pay

== ENCOUNTER 2018-07-10 11:01 | Emergency (ER) | payer OTHER ==
[2018-07-10 11:02] VITALS: BMI 40.2
[2018-07-10 11:05] VITALS: BP 136/79; PULSE 93; RESP 20; TEMP 99; O2SAT 98
[2018-07-10] MEDS ORDERED: Lidocaine 5% Patch TD STA (11:49)
[2018-07-10] MEDS ORDERED: Lidocaine 5% Patch TD ONE (12:04)
--- NOTE | 2018-07-10 12:51 | C.PDOC ---
History Of Present Illness Patient is a 38 year old male, with a PMHx of diabetes and seizures, who presents to the ED c/o lower right mid back pain that has been present for the past 2 days after lifting heavy objects at work. Patient has not had any recent seizures, even though he does not take any medications for seizures or diabetes due to a lack of insurance. Patient denies any fever, chills, nausea, vomiting, headache, or recent trauma. Time Seen by Provider: 07/10/18 11:25 Chief Complaint (Nursing): Back Pain History Per: Patient History/Exam Limitations: no limitations Onset/Duration Of Symptoms: Days (2) Current Symptoms Are (Timing): Still Present Quality Of Discomfort: "Pain" Recent travel outside of the [place]: No Additional History Per: Patient Past Medical History Reviewed: Historical Data, Nursing Documentation, Vital Signs Vital Signs: Last Vital Signs Temp 99 F 07/10/18 11:02 Pulse 93 H 07/10/18 11:02 Resp 20 07/10/18 11:02 BP 136/79 07/10/18 11:02 Pulse Ox 98 07/10/18 11:02 Primary Care Provider: Non [facility] Provider, - Medical History PMH: Back Problems, CVA, Diabetes, HTN, Hypercholesterolemia, Seizures (takes keppra) Denies: Chronic Kidney Disease Surgical History: Appendectomy, Cholecystectomy - [facility] Procedures OTH NONOPER CARD AND VASC MEASURE (06/23/14) Family History: States: Unknown Family Hx - Social History Hx Tobacco Use: Yes Hx Alcohol Use: No Hx Substance Use: No - Immunization History Hx Tetanus Toxoid Vaccination: No Hx Influenza Vaccination: Yes Hx Pneumococcal Vaccination: No Review Of Systems Constitutional: Negative for: Fever, Chills Gastrointestinal: Negative for: Nausea, Vomiting Musculoskeletal: Positive for: Back Pain (right lower mid back pain ) Neurological: Negative for: Headache Physical Exam - Physical Exam Appears: Non-toxic, No Acute Distress Skin: Warm, Dry Head: Atraumatic, Normacephalic Eye(s): bilateral: Normal Inspection Oral Mucosa: Moist Neck: Normal ROM, Supple Chest: Symmetrical, No Deformity Cardiovascular: Rhythm Regular, No Murmur Respiratory: Normal Breath Sounds, No Rales, No Rhonchi, No Wheezing Gastrointestinal/Abdominal: Soft, No Tenderness, Other (morbid obesity) Back: Paraspinal Tenderness (right side thoracic) Neurological/Psych: Oriented x3, Normal Speech, Normal Cognition ED Course And Treatment O2 Sat by Pulse Oximetry: 98 (on RA ) Pulse Ox Interpretation: Normal Medical Decision Making Medical Decision Making: Plan: Tylenol 975mg PO Flexeril 10mg PO Motrin 600mg PO Lidoderm 1ea TD Disposition Counseled Patient/Family Regarding: Diagnosis, Need For Followup - Disposition Referrals: [facility] [Outside] Disposition: HOME/ ROUTINE Disposition Time: 12:48 Condition: STABLE Additional Instructions: Over the counter medications: Motrin 600mg Tylenol 975 mg Lineaments like Icey Hot, Beng[place], [place] Instructions: Low Back Pain (DC), Back Exercises Forms: General Discharge Instructions, [facility] (Luxembourgish), Work Excuse - POA Present On Arrival: None - Clinical Impression Clinical Impression: Low back pain - Scribe Statement The provider has reviewed the documentation as recorded by the Deonibdaysi Barron All medical record entries made by the Scribe were at my direction and personally dictated by me. I have reviewed the chart and agree that the record accurately reflects my personal performance of the history, physical exam, medical decision making, and the department course for this patient. I have also personally directed, reviewed, and agree with the discharge instructions and disposition.
== END 2018-07-10 12:59 | disposition home or self-care (01) ==
LOC: C.ER 11:01
DX: M54.5 Low back pain (principal)